=== PATIENT | female | born 1945 | race Caucasian/White ===

== ENCOUNTER → 2017-09-30 | Outpatient (CLI) | payer MEDICARE ==
[2017-09-30 10:10] LABS: HCT 40.2 % (34.0-46.0); HGB 13.4 gm/dL (11.4-16.0); MCH 29.4 pg (25.0-35.0); MCHC 33.4 g/dL (31.0-37.0); MCV 88.1 fL (80.0-100.0); Mean Platelet Volume 8.6; RBC 4.57 m/uL (3.80-5.40); WBC 8.2 k/uL (3.8-10.6)
[2017-09-30 10:18] LABS: ALT 30 U/L (9-52); AST 21 U/L (14-36); Albumin 4.2 g/dL (3.5-5.0); Alkaline Phosphatase 103 U/L (38-126); Anion Gap 12 mmol/L; Blood Urea Nitrogen 18 mg/dL (7-17); Calcium 9.8 mg/dL (8.4-10.2); Carbon Dioxide 30 mmol/L (22-30); Chloride 101 mmol/L (98-107); Cholesterol 166 mg/dL (<200); Glucose 92 mg/dL (74-99); HDL Cholesterol 63 mg/dL (40-60); LDL Cholesterol,Calculated 76 mg/dL (0-99); Potassium 3.8 mmol/L (3.5-5.1); Sodium 143 mmol/L (137-145); Total Bilirubin 0.7 mg/dL (0.2-1.3); Total Protein 6.5 g/dL (6.3-8.2); Triglycerides 133 mg/dL (<150)
[2017-09-30 10:30] LABS: Platelet Count 86 k/uL (150-450)
[2017-09-30 10:33] LABS: T4, Free (Free Thyroxine) 1.05 ng/dL (0.78-2.19)
== END | disposition home or self-care (01) ==
LOC: LABWHC1 08:59
PROVIDERS: ATTEND Family Medicine
DX: I10 Essential (primary) hypertension (principal); E78.4 Other hyperlipidemia; E03.9 Hypothyroidism, unspecified
CPT/HCPCS: 36415; 80053; 80061; 84439; 84443; 85027

== ENCOUNTER → 2017-10-29 | Outpatient (CLI) | payer MEDICARE ==
--- NOTE | 2017-10-30 12:12 | MM ---
Reason for exam: screening (asymptomatic). Last mammogram was performed 4 years ago. History: Patient is postmenopausal. Cyst aspiration of the left breast, 1987. Physical Findings: A clinical breast exam by your physician is recommended on an annual basis and results should be correlated with mammographic findings. MG 3D Screening Mammo W/Cad Bilateral CC and MLO view(s) were taken. Prior study comparison: November 02, 2013, bilateral MG screening mammo w CAD. October 12, 2012, bilateral digital screening mammo w/CAD. There are scattered fibroglandular densities. Finding: There are typically benign vascular calcifications in both breasts. No significant changes in finding since November 02, 2013 and October 12, 2012. ASSESSMENT: Benign, BI-RAD 2 RECOMMENDATION: Routine screening mammogram of both breasts in 1 year.
== END | disposition home or self-care (01) ==
LOC: RADMAMWWP 07:43
PROVIDERS: ATTEND Family Medicine
DX: Z12.31 Encounter for screening mammogram for malignant neoplasm of breast (principal)
CPT/HCPCS: 77063; 77067

== ENCOUNTER → 2018-02-20 | Outpatient (CLI) | payer MEDICARE ==
[2018-02-20 13:35] LABS: HCT 40.4 % (34.0-46.0); HGB 12.8 gm/dL (11.4-16.0); MCH 29.2 pg (25.0-35.0); MCHC 31.7 g/dL (31.0-37.0); MCV 91.9 fL (80.0-100.0); Mean Platelet Volume 8.3; RDW 13.6 % (11.5-15.5)
[2018-02-20 14:48] LABS: Platelet Count 81 k/uL (150-450)
== END | disposition home or self-care (01) ==
LOC: LABWHC1 12:37
PROVIDERS: ATTEND Family Medicine
DX: D69.6 Thrombocytopenia, unspecified (principal)
CPT/HCPCS: 36415; 85027

== ENCOUNTER → 2020-01-14 | Outpatient (CLI) | payer MEDICARE ==
--- NOTE | 2020-01-14 16:28 | US ---
EXAMINATION TYPE: US thyroid st tissue head/neck DATE OF EXAM: 01/14/2020 COMPARISON: 04/11/2011 CLINICAL HISTORY: 74-year-old female E04.1 Nontoxic single thyroid nodule. TECHNIQUE: Multiple sonographic images of the thyroid gland are obtained. FINDINGS: GLAND SIZE: Right Lobe: 4.0 x 1.7 x 2.1 cm Overall Parenchyma: homogenous Left Lobe: 3.9 x 2.0 x 2.1 cm Overall Parenchyma: homogeneous Isthmus Thickness: 0.2 cm NODULES RIGHT: # of nodules measured on right: 1 1. 2.5 X 1.2 x 1.7 cm mixed nodule at the upper/mid pole with well-defined margins; . This nodule is wider than tall and shows intranodular vascularity. Prior size: 1.7 x 1.0 x 1.3 cm LEFT: # of nodules measured on left: 1 1. 2.6 X 1.6 x 1.9 cm mixed nodule at the mid/lower pole with poorly defined margins; . This nodul e is wider than tall and shows intranodular vascularity. Prior size: 2.0 x 1.0 x 1.6 cm ISTHMUS: # of nodules measured in the isthmus: 0 IMPRESSION: Mixed, primarily solid nodules, one on each side have enlarged from 2010 measuring 2.5 x 1.7 cm on th e right (versus 1.7 x 1.3 cm, previously) and 2.6 x 1.9 cm on the left (versus 2.0 x 1.6 cm, previous ly). The decision to biopsy should be made on a clinical basis.
== END | disposition home or self-care (01) ==
LOC: RADUSWWP 12:47
PROVIDERS: ATTEND Otolaryngology Otolaryngic Allergy
DX: E04.1 Nontoxic single thyroid nodule (principal)
CPT/HCPCS: 76536

== ENCOUNTER 2020-02-01 12:24 | Day surgery (SDC) | payer MEDICARE ==
[2020-02-01 12:56] VITALS: RESP 16; TEMP 98.5
[2020-02-01 14:21] VITALS: BP 131/70; PULSE 73
--- NOTE | 2020-02-01 16:45 | US ---
EXAMINATION TYPE: Ultrasound-guided fine-needle aspiration of right and left thyroid nodules. COMPARISON: Ultrasound thyroid 01/14/2020 [employer] ENGINEER: Dr. Sarah Shi HISTORY: Thyroid nodules Preprocedure preliminary imaging of the right thyroid demonstrates a 2.8 x 1.6 x 1.5 cm mixed cystic solid, hyperechoic/isoechoic, smoothly marginated nodule with internal color Doppler flow and no echo genic foci. Preprocedure primary imaging of the left thyroid demonstrates a 3.0 x 1.5 x 1.9 cm solid, isoechoic, smoothly marginated nodule with internal color Doppler flow, and no echogenic foci. Decis ion was made to proceed with fine-needle aspiration of the bilateral thyroid nodules. The procedure was discussed with the patient. The risks, complications, benefits, and alternatives we re discussed and any questions were answered. Informed consent was obtained. Maximal barrier technique was utilized. Ultrasound using sterile technique. The skin overlying the bi lateral neck was localized with ultrasound and the overlying skin prepped and draped. Targeting the l eft thyroid nodule, lidocaine used for local anesthesia. 5 passes with a 25-gauge needle were made in to the left nodule under ultrasound guidance. Aspirate specimen submitted to cytology. Subsequently t argeting the right thyroid nodule, lidocaine used for local anesthesia. 4 passes with a 25-gauge need le and one pass with a 23-gauge needle was were made into the right nodule under ultrasound guidance. Aspirate specimen submitted to cytology. Following the procedure hemostasis achieved. No immediate c omplication Postprocedure ultrasound imaging demonstrates no significant hemorrhage. IMPRESSION: Status post ultrasound-guided fine-needle aspiration of bilateral thyroid nodules, pathol ogy pending.
== END 2020-02-01 14:22 | disposition home or self-care (01) ==
LOC: RADPROMAIN 12:24
PROVIDERS: ATTEND Otolaryngology Otolaryngic Allergy
DX: E04.2 Nontoxic multinodular goiter (principal)
CPT/HCPCS: 10005; 10006; 88173; 88305

== ENCOUNTER → 2020-04-13 | Outpatient (CLI) | payer MEDICARE ==
--- NOTE | 2020-04-14 13:40 | MM ---
Reason for exam: screening (asymptomatic). Last mammogram was performed 2 years and 5 months ago. History: Patient is postmenopausal. Cyst aspiration of the left breast, 1987. Physical Findings: A clinical breast exam by your physician is recommended on an annual basis and results should be correlated with mammographic findings. MG 3D Screening Mammo W/Cad Bilateral CC and MLO view(s) were taken. Prior study comparison: October 29, 2017, bilateral MG 3d screening mammo w/cad. November 02, 2013, bilateral MG screening mammo w CAD. There are scattered fibroglandular densities. No significant changes when compared with prior studies. ASSESSMENT: Benign, BI-RAD 2 RECOMMENDATION: Routine screening mammogram of both breasts in 1 year.
== END | disposition home or self-care (01) ==
LOC: RADMAMWWP 09:36
PROVIDERS: ATTEND Family Medicine
DX: Z12.31 Encounter for screening mammogram for malignant neoplasm of breast (principal)
CPT/HCPCS: 77063; 77067

== ENCOUNTER → 2021-03-14 | Outpatient (CLI) | payer MEDICARE ==
--- NOTE | 2021-03-14 14:19 | CT ---
EXAMINATION TYPE: CT abdomen pelvis w con DATE OF EXAM: 03/14/2021 COMPARISON: None HISTORY: renal cysts CT DLP: 4.3 mGycm Automated exposure control for dose reduction was used. TECHNIQUE: Helical acquisition of images from the lung bases through the pelvis have been completed. CONTRAST: Performed with Oral Contrast and with IV Contrast, patient injected with 100 mL of Isovue 300. FINDINGS: Hiatal hernia is noted. Metallic densities noted at the level of the mitral annulus, aortic root, there are coronary artery calcifications. LUNG BASES: No significant abnormality is appreciated. AORTA: No significant abnormality is appreciated. LIVER/GB: No significant abnormality is appreciated. PANCREAS: No significant abnormality is seen. SPLEEN: No significant abnormality is seen. ADRENALS: No significant abnormality is seen. KIDNEYS: Multiple cystic foci associated with the kidneys, the lower pole of the right kidney and ant erior exophytic location there is a cystic focus measuring 3 cm the Hounsfield unit measurements are slightly increased at approximately 32, upper pole cyst on the right measures approximately 18 mm and also slightly elevated Hounsfield units at 30. Along the inferior margin of the posterior aspect of the left kidney there is a cystic focus measuring 4 cm with extension into the renal pelvis showing c ystic Hounsfield unit measurement of 11, anteriorly at the upper to midpole the left kidney there is a cystic focus measuring 3.3 cm, Hounsfield unit measurement slightly elevated 26. REPRODUCTIVE ORGANS: Not seen BOWEL: Diverticular changes associated with the sigmoid colon and descending colon, the appendix is not seen FREE AIR: No Free Air visible. ASCITES: None visible. PELVIC ADENOPATHY: None visualized. RETROPERITONEAL ADENOPATHY: No Retroperitoneal Adenopathy visible. URINARY BLADDER: No significant abnormality is seen. OSSEOUS STRUCTURES: Degenerative disc changes and facet arthropathy, multilevel foraminal encroachme nt noted incidentally. IMPRESSION: FINDINGS COULD POSSIBLY REPRESENT PROTEINACEOUS CYSTS, FOLLOW-UP COULD BE PERFORMED TO ASSESS FOR STA BILITY.
== END | disposition home or self-care (01) ==
LOC: RADCTMAIN 11:08
PROVIDERS: ATTEND Internal Medicine Nephrology
DX: N28.1 Cyst of kidney, acquired (principal)
CPT/HCPCS: 82565; 84520; 74177; Q9967

== ENCOUNTER → 2022-02-12 | Outpatient (CLI) | payer MEDICARE ==
--- NOTE | 2022-02-14 07:36 | US ---
EXAMINATION TYPE: US arterial LE single level DATE OF EXAM: 02/12/2022 1:50 PM CLINICAL HISTORY: I73.9 PAD. PAD per order. Prior smoker, hypertension. Doppler Waveforms: Right: Monophasic to multiphasic Left: Monophasic to multiphasic Pulse Volume Recording: Flattened particularly on the right Ankle-Brachial Indices: Right: 1.03 Left: 1.12 Toe Brachial Indices: Right: 0.41 Left: 0.63 IMPRESSION: Some loss of phasicity may be technical. Diminished right sided TBI consistent with at [place] mild peripheral arterial disease in the right foot. Further workup and follow-up advised.
== END | disposition home or self-care (01) ==
LOC: RADUSWWP 12:57
PROVIDERS: ATTEND Family Medicine
DX: I73.9 Peripheral vascular disease, unspecified (principal); I10 Essential (primary) hypertension; Z87.891 Personal history of nicotine dependence
CPT/HCPCS: 93922